=== PATIENT | female | born 1955 | race Two or more races ===

== ENCOUNTER 2021-10-24 18:08 | Emergency (ER) | payer SELFPAY ==
[~2021-10-24] VITALS: Ht 172.7 cm; Wt 73.5 kg
--- NOTE | 2021-10-24 18:30 | NUR ---
BIBFAMILY W/ C/O BILATERAL ANKLE SWELLING S/P FALL FROM STAIRS LAST NIGHT. C/O BLE PAIN, RATED 6/10. ASSISTED TO ER BED 12 VIA WHEELCHAIR.
--- NOTE | 2021-10-24 19:50 | NUR ---
EMT AT BEDSIDE FOR ORTHOPEDIC BOOT APPLICATION
[2021-10-24] MEDS ORDERED: NAPR-1192 PO (20:04)
[2021-10-24 20:27] VITALS: BP 130/77
--- NOTE | 2021-10-24 20:27 | NUR ---
Patient discharged to home in stable condition. Written and verbal after care instructions given. Patient verbalizes understanding of instruction.
== END 2021-10-24 20:30 | disposition home or self-care (01) ==
LOC: ER 18:08
DX: S82.445A Nondisplaced spiral fracture of shaft of left fibula, initial encounter for closed fracture (principal); S93.491A Sprain of other ligament of right ankle, initial encounter; I10 Essential (primary) hypertension; W10.8XXA Fall (on) (from) other stairs and steps, initial encounter; Y93.89 Activity, other specified; Y92.89 Other specified places as the place of occurrence of the external cause; Y99.8 Other external cause status
CPT/HCPCS: 73610-TC